=== PATIENT | male | born 1995 | race Caucasian/White ===

== ENCOUNTER 2020-11-03 14:11 | Emergency (ER) | payer OTHER, SELFPAY ==
[2020-11-03 14:22] VITALS: BP 155/89; PULSE 98; RESP 20; TEMP 37.9; O2SAT 99
[2020-11-03 14:24] VITALS: BP 155/89; PULSE 98; RESP 20; TEMP 37.9; O2SAT 99
--- NOTE | 2020-11-03 14:38 | ED.GENADULT ---
HPI - General Adult General Chief complaint: Headache Stated complaint: headache Time Seen by Provider: 11/03/20 14:38 Source: patient and RN notes reviewed Mode of arrival: ambulatory Limitations: no limitations History of Present Illness HPI narrative: 24-year-old male presents with concern for headache, fever, body aches, fatigue. Reports symptoms started yesterday. Reports his is also ill. Reports has not been vaccinated for Covid. He denies cough, shortness of breath, nausea, vomiting, diarrhea. Denies intervention. complaint: Headache Related Data Home Medications Medication Instructions Recorded Confirmed No Home Medications 11/03/20 11/03/20 Allergies Allergy/AdvReac Type Severity Reaction Status Date / Time prednisone AdvReac Other Verified 11/03/20 14:23 Review of Systems Review of Systems: Narrative: CONSTITUTIONAL: Reports malaise, fatigue, fever. Denies chills, sweats EYES: Denies visual changes, redness, or discharge. ENT: Denies rhinorrhea, congestion, sinus pain, otalgia and sore throat. CARDIOVASCULAR: Denies chest pain, palpitations, or edema. RESPIRATORY: Denies cough or dyspnea. GASTROINTESTINAL: Denies abdominal pain, nausea, vomiting, diarrhea SKIN: Denies rash or itching. MUSCULOSKELETAL: Reports myalgia. NEUROLOGIC: Reports headache. All systems reviewed & are unremarkable except as noted in HPI and below PMFSH Comments At time of signature, agree with nursing past medical, surgical, social and family history. There is no relevant family history pertinent to the presenting complaint Exam Narrative: Exam Narrative: GENERAL: Well-appearing, well-nourished, and in no acute distress. HEAD: Normocephalic EYES: PERRLA, conjunctivae clear ENT: Nares clear. Mucous membranes moist. TM pearly riddle with sharp light reflex bilaterally; no tragal tenderness. Oropharynx not erythematous without lesions. Tonsils not enlarged and without exudate, no drooling, no hoarseness, no trismus, uvula midline. NECK: Supple. No lymphadenopathy CHEST: Clear to auscultation, breath sounds equal. No wheezing, rhonchi, rales, or stridor. No respiratory distress, speaks in full sentences. HEART: Regular rate and rhythm. No murmur heard. SKIN: Warm, dry, no rash. NEURO: Alert and oriented x3. PSYCH: Normal mood and affect Course Course Emergency Course: Patient is aware of diagnosis, understands and agrees to treatment plan. Anticipatory guidance given. Patient agrees to follow-up as directed and is aware of reasons to seek care at the emergency department. Portions of this record may have been created with voice recognition software Vital Signs Vital signs: Vital Signs Temperature 100.2 F H 11/03/20 14:22 Pulse Rate 98 11/03/20 14:22 Respiratory Rate 20 11/03/20 14:22 Blood Pressure 155/89 H 11/03/20 14:22 Pulse Oximetry 99 11/03/20 14:22 Temperature 100.2 F H 11/03/20 14:24 Pulse Rate 98 11/03/20 14:24 Respiratory Rate 20 11/03/20 14:24 Blood Pressure 155/89 H 11/03/20 14:24 Pulse Oximetry 99 11/03/20 14:24 Reviewed. Medical Decision Making MDM Narrative Medical decision making narrative: Differential diagnosis considered: Lim virus, strep pharyngitis, allergic rhinitis, upper respiratory tract infection, sinusitis, rhinosinusitis, nasopharyngitis. viral pharyngitis, otitis media, otitis externa, pneumonia, bronchitis, viral cough syndrome, viral syndrome, and influenza. Exam findings show no acute concerns or changes; patient is non-toxic appearing and is in no distress. Patient is appropriate for outpatient treatment and follow-up. Vital Signs Vital Signs: Vital Signs Temperature 100.2 F H 11/03/20 14:22 Pulse Rate 98 11/03/20 14:22 Respiratory Rate 20 11/03/20 14:22 Blood Pressure 155/89 H 11/03/20 14:22 Pulse Oximetry 99 11/03/20 14:22 Temperature 100.2 F H 11/03/20 14:24 Pulse Rate 98 11/03/20 14:24 Respiratory Rate 20
--- NOTE | 2020-11-03 15:30 | PC.NURSE ---
Positive results entered into State web site.
== END 2020-11-03 15:05 | disposition home or self-care (01) ==
PROVIDERS: Emergency Provider Nurse Practitioner
DX: U07.1 COVID-19 (principal); J45.909 Unspecified asthma, uncomplicated
CPT/HCPCS: 87081; 87426; 87880; 99213; C9803; G0463; U0003; U0005